=== PATIENT | female | born 1955 | race African-American/Black ===

== ENCOUNTER 2020-04-29 00:39 | Inpatient (IN) ==
[2020-04-29] MEDS ORDERED: DEXAMETHASONE 4 MG/1 ML VIAL IV STA (00:54)
[2020-04-29] MEDS ORDERED: ONDANSETRON 4 MG/2 ML VIAL IV STA (00:54)
[2020-04-29] MEDS ORDERED: PIPERACILLIN/TAZOBACTAM 3,375 MG in SODIUM CHLORIDE 0.9% 100 ML IV STA (01:35)
[2020-04-29 02:09] LABS: Basophils % 0.2 % (0.0-0.8); Hematocrit 34.6 VOL% (35.7-47.0); Hemoglobin 11.1 GM/DL (12.0-16.0); Lymphocytes # 2.4 10*3/uL (1.4-4.0); Lymphocytes % 24.7 % (21.3-54.2); Mean Corpuscular HGB Conc 32.1 GM/DL (32-36); Mean Corpuscular Volume 85.4 FL (87-102); Mean Platelet Volume 8.9 FL (9.6-12.0); Monocytes % 7.6 % (1.7-12.7); Neutrophils % 66.5 % (38.7-73.9); Platelet Count 332 T/CUMM (130-400); Red Blood Count 4.05 MC/CUMM (3.8-5.5); Red Cell Distribution Width 18.2 % (9.3-17.3); White Blood Count 9.8 T/CUMM (4-12)
[2020-04-29] MEDS ORDERED: AZITHROMYCIN INJ 500 MG in SODIUM CHLORIDE 0.9% 250 ML IV ONE (02:10)
[2020-04-29] MEDS ORDERED: GLUCAGON 1 MG VIAL IM PRN (02:19)
[2020-04-29] MEDS ORDERED: DOCUSATE SODIUM 100 MG CAPSULE PO PRN (02:19)
[2020-04-29] MEDS ORDERED: DEXTROSE 50% 25 GM/50 ML VIAL IV PRN (02:19)
[2020-04-29 02:39] LABS: Albumin 2.9 G/DL (3.4-5.0); Bilirubin,Total 0.4 MG/DL (0.2-1.0); Calcium 8.3 MG/DL (8.5-10.1); Ferritin 178.2 ng/ml (8-252); Osmolality,Calculated 275.5 MOS/KG (273-304); Potassium 3.2 MMOL/L (3.5-5.1); Total Protein 8.2 G/DL (6.4-8.3)
[2020-04-29] MEDS: ACETAMINOPHEN 325 MG TABLET PO PRN (05:10)
[2020-04-29 06:24] LABS: PT Patient Result 10.9 SECS (9.8-11.9)
[2020-04-29] MEDS ORDERED: REMDESIVIR 200 MG in SODIUM CHLORIDE 0.9% 210 ML IV ONE (09:00)
[2020-04-29] MEDS: CHOLECALCIFEROL 1,000 UNIT TABLET PO SCH (09:55)
[2020-04-29] MEDS: FAMOTIDINE 20 MG TABLET PO SCH ×2 (09:55→20:58)
[2020-04-29] MEDS: DEXAMETHASONE 4 MG/1 ML VIAL IV SCH (09:55)
[2020-04-29] MEDS: ASCORBIC ACID 500 MG TABLET PO SCH ×2 (09:55→20:57)
[2020-04-29] MEDS: ENOXAPARIN 40 MG/0.4 ML SYRINGE SUBCUT SCH ×2 (11:10→20:57)
[2020-04-29] MEDS: CETIRIZINE 10 MG TABLET PO SCH (11:21)
[2020-04-29] MEDS: ZINC GLUCONATE 50 MG TABLET PO SCH (11:21)
[2020-04-29] MEDS: DOXYCYCLINE HYCLATE INJ 100 MG in SODIUM CHLORIDE 0.9% 100 ML IV SCH ×2 (13:01→20:58)
[2020-04-30 04:06] LABS: ABG HCO3 27.7 MMOL/L (20-26); ABG PCO2 39.9 MM HG (35-48); ABG PH 7.457 (7.35-7.45); ABG PO2 46.9 MM HG (80-95); ABG TCO2 25.5 MMOL/L (23-27)
[2020-04-30 05:05] LABS: Basophils % 0.1 % (0.0-0.8); Hematocrit 33.4 VOL% (35.7-47.0); Hemoglobin 11.2 GM/DL (12.0-16.0); Immature Granulocytes % 0.9 %; Immature Granulocytes Absolute 0.13 #; Lymphocytes # 3.6 10*3/uL (1.4-4.0); Lymphocytes % 25.8 % (21.3-54.2); Mean Corpuscular HGB Conc 33.5 GM/DL (32-36); Mean Corpuscular Volume 82.1 FL (87-102); Mean Platelet Volume 9.5 FL (9.6-12.0); Monocytes % 7.5 % (1.7-12.7); Neutrophils % 65.7 % (38.7-73.9); Platelet Count 371 T/CUMM (130-400); Red Blood Count 4.07 MC/CUMM (3.8-5.5); Red Cell Distribution Width 17.2 % (9.3-17.3); White Blood Count 14.1 T/CUMM (4-12)
[2020-04-30 05:25] LABS: Calcium 8.3 MG/DL (8.5-10.1); Osmolality,Calculated 283.1 MOS/KG (273-304); Potassium 3.4 MMOL/L (3.5-5.1)
[2020-04-30 05:27] LABS: Hypochromasia 1+; Lymphocytes 21 % (20-55); Microcytosis 1+; Platelet Estimate Adequate; Segmented Neutrophils 68 % (50-85); Total Cells Counted 100
[2020-04-30] MEDS: DEXAMETHASONE 4 MG/1 ML VIAL IV SCH (09:50)
[2020-04-30] MEDS: ALBUTEROL INHALER 18 GM INH SCH ×3 (09:50→18:22)
[2020-04-30] MEDS: FAMOTIDINE 20 MG TABLET PO SCH ×2 (09:51→20:54)
[2020-04-30] MEDS: CHOLECALCIFEROL 1,000 UNIT TABLET PO SCH (09:51)
[2020-04-30] MEDS: ASCORBIC ACID 500 MG TABLET PO SCH ×2 (09:51→20:55)
[2020-04-30] MEDS: CETIRIZINE 10 MG TABLET PO SCH (09:51)
[2020-04-30] MEDS: ENOXAPARIN 120 MG/0.8 ML SYRINGE SUBCUT SCH ×2 (09:51→20:55)
[2020-04-30] MEDS: ENOXAPARIN 40 MG/0.4 ML SYRINGE SUBCUT SCH (10:24)
[2020-04-30 10:40] LABS: Troponin I < 0.015 NG/ML (0.00-0.045)
[2020-04-30] MEDS ORDERED: ALUMINUM/MAGNES/SIMETH MAX STR 30 ML UDCUP PO PRN (10:43)
[2020-04-30] MEDS: REMDESIVIR 100 MG in SODIUM CHLORIDE 0.9% 100 ML IV SCH (10:45)
[2020-04-30] MEDS: DOXYCYCLINE HYCLATE INJ 100 MG in SODIUM CHLORIDE 0.9% 100 ML IV SCH ×2 (12:34→22:03)
[2020-04-30] MEDS: OLMESARTAN 20 MG TABLET PO SCH (14:27)
[2020-04-30] MEDS ORDERED: SODIUM CHLORIDE 0.9% 1,000 ML IV PRN (14:37)
[2020-04-30] MEDS ORDERED: FUROSEMIDE 40 MG/4 ML VIAL IV ONE (15:46)
[2020-04-30 16:41] LABS: ABG Base Excess 4.4 MMOL/L (-2.5-2.5); ABG HCO3 28.2 MMOL/L (20-26); ABG PH 7.439 (7.35-7.45); ABG TCO2 25.6 MMOL/L (23-27); Allen Test Positive; Pt O2 Delivery Device BIPAP
[2020-05-01] MEDS: ALBUTEROL INHALER 18 GM INH SCH ×4 (01:30→20:45)
[2020-05-01] MEDS: ONDANSETRON 4 MG/2 ML VIAL IV PRN ×2 (03:05→08:32)
[2020-05-01 04:46] LABS: Basophils % 0.1 % (0.0-0.8); Eosinophils % 0.1 % (0.00-10.9); Hematocrit 35.8 VOL% (35.7-47.0); Hemoglobin 11.6 GM/DL (12.0-16.0); Immature Granulocytes % 0.6 %; Immature Granulocytes Absolute 0.07 #; Lymphocytes # 3.2 10*3/uL (1.4-4.0); Lymphocytes % 26.2 % (21.3-54.2); Mean Corpuscular HGB Conc 32.4 GM/DL (32-36); Mean Corpuscular Volume 82.3 FL (87-102); Mean Platelet Volume 9.4 FL (9.6-12.0); Monocytes % 7.4 % (1.7-12.7); Neutrophils % 65.6 % (38.7-73.9); Platelet Count 413 T/CUMM (130-400); Red Blood Count 4.35 MC/CUMM (3.8-5.5); Red Cell Distribution Width 17.2 % (9.3-17.3)
[2020-05-01 05:04] LABS: Calcium 8.4 MG/DL (8.5-10.1); Osmolality,Calculated 287.8 MOS/KG (273-304); Potassium 3.1 MMOL/L (3.5-5.1)
[2020-05-01 05:17] LABS: Atypical Lymphocytes Few; Hypochromasia 1+; Lymphocytes 24 % (20-55); Microcytosis 1+; Platelet Estimate Adequate; Segmented Neutrophils 69 % (50-85); Total Cells Counted 100
[2020-05-01] MEDS ORDERED: POTASSIUM CHLORIDE 20 MEQ TABLET PO ONE (08:11)
[2020-05-01] MEDS: DEXAMETHASONE 4 MG/1 ML VIAL IV SCH (08:30)
[2020-05-01] MEDS: CETIRIZINE 10 MG TABLET PO SCH (08:32)
[2020-05-01] MEDS: CHOLECALCIFEROL 1,000 UNIT TABLET PO SCH (08:32)
[2020-05-01] MEDS: ENOXAPARIN 120 MG/0.8 ML SYRINGE SUBCUT SCH ×2 (08:32→20:45)
[2020-05-01] MEDS: ZINC GLUCONATE 50 MG TABLET PO SCH (08:33)
[2020-05-01] MEDS: OLMESARTAN 20 MG TABLET PO SCH (08:33)
[2020-05-01] MEDS: DOXYCYCLINE HYCLATE INJ 100 MG in SODIUM CHLORIDE 0.9% 100 ML IV SCH ×2 (08:34→21:45)
[2020-05-01] MEDS: ASCORBIC ACID 500 MG TABLET PO SCH ×2 (08:34→20:45)
[2020-05-01] MEDS: POTASSIUM CHLORIDE RIDER 10 MEQ in PREMIX 1 EACH IV PRN ×3 (08:34→12:11)
[2020-05-01] MEDS: FAMOTIDINE 20 MG TABLET PO SCH ×2 (08:34→20:45)
[2020-05-01] MEDS: REMDESIVIR 100 MG in SODIUM CHLORIDE 0.9% 100 ML IV SCH (09:49)
[2020-05-01] MEDS: ALPRAZolam 0.25 MG TABLET PO PRN ×2 (12:11→20:47)
[2020-05-01 14:17] LABS: Bacteria,Urine Occasional /HPF (Few); Bilirubin,Urine Negative (Negative); Blood, Urine Negative (Negative); Glucose,Urine (UA) Negative (Negative); Ketones,Urine 5 mg/dL (Negative); Mucus,Urine Occasional /LPF (Occasional); Nitrite,Urine Negative (Negative); Protein,Urine 100 MG/DL; RBC,Urine 1 /HPF (0-4); Squamous Epithelial Cell,Urine Occasional /HPF (0-10); Urine Appearance CLEAR (Clear); Urine Color Yellow (Yellow); Urine Specific Gravity 1.017 (1.001-1.035); Urine Urobilinogen < 2.0 EU/DL (0.2-1.0); WBC,Urine 8 /HPF (0-6)
[2020-05-01] MEDS: MELATONIN 3 MG TABLET PO PRN (20:46)
[2020-05-02] MEDS: ACETAMINOPHEN 325 MG TABLET PO PRN ×2 (00:29→08:31)
[2020-05-02] MEDS: ALBUTEROL INHALER 18 GM INH SCH ×4 (01:50→20:21)
[2020-05-02 04:17] LABS: Basophils % 0.1 % (0.0-0.8); Eosinophils % 0.1 % (0.00-10.9); Hematocrit 33.5 VOL% (35.7-47.0); Hemoglobin 10.8 GM/DL (12.0-16.0); Immature Granulocytes % 0.6 %; Immature Granulocytes Absolute 0.09 #; Lymphocytes # 3.8 10*3/uL (1.4-4.0); Mean Corpuscular HGB Conc 32.2 GM/DL (32-36); Mean Corpuscular Volume 83.3 FL (87-102); Mean Platelet Volume 9.3 FL (9.6-12.0); Monocytes % 7.9 % (1.7-12.7); Neutrophils % 65.3 % (38.7-73.9); Platelet Count 421 T/CUMM (130-400); Red Blood Count 4.02 MC/CUMM (3.8-5.5); Red Cell Distribution Width 17.3 % (9.3-17.3); White Blood Count 14.7 T/CUMM (4-12)
[2020-05-02 04:41] LABS: Calcium 8.7 MG/DL (8.5-10.1); Potassium 3.8 MMOL/L (3.5-5.1)
[2020-05-02 04:44] LABS: Lymphocytes 29 % (20-55); Platelet Estimate Increased; Segmented Neutrophils 66 % (50-85); Total Cells Counted 100
[2020-05-02 04:45] LABS: Hypochromasia Slight
[2020-05-02 04:50] LABS: Allen Test Positive; Pt O2 Delivery Device BIPAP
[2020-05-02 04:53] LABS: ABG Base Excess 5.4 MMOL/L (-2.5-2.5); ABG HCO3 29.8 MMOL/L (20-26); ABG Oxygen Saturation 90.5 % (95-100); ABG PH 7.459 (7.35-7.45); ABG PO2 57.9 MM HG (80-95); ABG TCO2 31.1 MMOL/L (23-27)
[2020-05-02] MEDS: ONDANSETRON 4 MG/2 ML VIAL IV PRN (08:29)
[2020-05-02] MEDS: DEXAMETHASONE 4 MG/1 ML VIAL IV SCH (08:30)
[2020-05-02] MEDS: ALPRAZolam 0.25 MG TABLET PO PRN ×2 (08:30→20:22)
[2020-05-02] MEDS: ASCORBIC ACID 500 MG TABLET PO SCH ×2 (08:31→20:21)
[2020-05-02] MEDS: CETIRIZINE 10 MG TABLET PO SCH (08:31)
[2020-05-02] MEDS: OLMESARTAN 20 MG TABLET PO SCH (08:31)
[2020-05-02] MEDS: FAMOTIDINE 20 MG TABLET PO SCH ×2 (08:31→20:21)
[2020-05-02] MEDS: CHOLECALCIFEROL 1,000 UNIT TABLET PO SCH (08:31)
[2020-05-02] MEDS: ENOXAPARIN 120 MG/0.8 ML SYRINGE SUBCUT SCH ×2 (08:32→21:10)
[2020-05-02] MEDS: DOXYCYCLINE HYCLATE INJ 100 MG in SODIUM CHLORIDE 0.9% 100 ML IV SCH ×2 (09:03→20:26)
[2020-05-02] MEDS: REMDESIVIR 100 MG in SODIUM CHLORIDE 0.9% 100 ML IV SCH (12:10)
[2020-05-02] MEDS: MELATONIN 3 MG TABLET PO PRN (20:21)
[2020-05-03] MEDS: ALBUTEROL INHALER 18 GM INH SCH ×4 (03:21→21:38)
[2020-05-03 04:39] LABS: Basophils % 0.2 % (0.0-0.8); Eosinophils % 0.1 % (0.00-10.9); Hematocrit 33.1 VOL% (35.7-47.0); Hemoglobin 10.7 GM/DL (12.0-16.0); Immature Granulocytes % 0.9 %; Immature Granulocytes Absolute 0.12 #; Lymphocytes # 3.2 10*3/uL (1.4-4.0); Lymphocytes % 22.4 % (21.3-54.2); Mean Corpuscular HGB Conc 32.3 GM/DL (32-36); Mean Corpuscular Volume 85.1 FL (87-102); Mean Platelet Volume 9.4 FL (9.6-12.0); Monocytes % 5.2 % (1.7-12.7); Neutrophils % 71.2 % (38.7-73.9); Platelet Count 389 T/CUMM (130-400); Red Blood Count 3.89 MC/CUMM (3.8-5.5); Red Cell Distribution Width 17.6 % (9.3-17.3); White Blood Count 14.1 T/CUMM (4-12)
[2020-05-03 04:57] LABS: Calcium 8.4 MG/DL (8.5-10.1); Osmolality,Calculated 283.1 MOS/KG (273-304); Potassium 3.7 MMOL/L (3.5-5.1)
[2020-05-03 05:19] LABS: Eosinophils 1 % (0-10); Hypochromasia 1+; Lymphocytes 24 % (20-55); Microcytosis 1+; Platelet Estimate Adequate; Segmented Neutrophils 66 % (50-85); Total Cells Counted 100
[2020-05-03] MEDS: DOXYCYCLINE HYCLATE INJ 100 MG in SODIUM CHLORIDE 0.9% 100 ML IV SCH ×2 (08:30→21:44)
[2020-05-03] MEDS: CETIRIZINE 10 MG TABLET PO SCH (08:31)
[2020-05-03] MEDS: CHOLECALCIFEROL 1,000 UNIT TABLET PO SCH (08:31)
[2020-05-03] MEDS: ZINC GLUCONATE 50 MG TABLET PO SCH (08:31)
[2020-05-03] MEDS: OLMESARTAN 20 MG TABLET PO SCH (08:31)
[2020-05-03] MEDS: ASCORBIC ACID 500 MG TABLET PO SCH ×2 (08:31→21:44)
[2020-05-03] MEDS: ENOXAPARIN 120 MG/0.8 ML SYRINGE SUBCUT SCH ×2 (08:32→21:44)
[2020-05-03] MEDS: DEXAMETHASONE 4 MG/1 ML VIAL IV SCH (08:37)
[2020-05-03] MEDS: FAMOTIDINE 20 MG TABLET PO SCH ×2 (08:37→21:44)
[2020-05-03] MEDS: ALPRAZolam 0.25 MG TABLET PO PRN (12:11)
[2020-05-03] MEDS: REMDESIVIR 100 MG in SODIUM CHLORIDE 0.9% 100 ML IV SCH (12:15)
[2020-05-03] MEDS: MELATONIN 3 MG TABLET PO PRN (21:44)
[2020-05-03] MEDS: ACETAMINOPHEN 325 MG TABLET PO PRN (22:19)
[2020-05-04] MEDS: ALBUTEROL INHALER 18 GM INH SCH ×4 (01:11→18:00)
[2020-05-04] MEDS: ALPRAZolam 0.25 MG TABLET PO PRN ×3 (01:42→20:10)
[2020-05-04 05:16] LABS: Basophils % 0.2 % (0.0-0.8); Eosinophils # 0.1 10*3/uL (0.0-0.87); Eosinophils % 0.5 % (0.00-10.9); Hematocrit 34.3 VOL% (35.7-47.0); Immature Granulocytes % 0.9 %; Immature Granulocytes Absolute 0.12 #; Lymphocytes # 2.7 10*3/uL (1.4-4.0); Lymphocytes % 21.2 % (21.3-54.2); Mean Corpuscular HGB Conc 32.1 GM/DL (32-36); Mean Corpuscular Volume 83.7 FL (87-102); Mean Platelet Volume 10.1 FL (9.6-12.0); Monocytes % 7.7 % (1.7-12.7); Neutrophils % 69.5 % (38.7-73.9); Platelet Count 426 T/CUMM (130-400); Red Cell Distribution Width 17.2 % (9.3-17.3); White Blood Count 12.9 T/CUMM (4-12)
[2020-05-04 05:56] LABS: Calcium 8.8 MG/DL (8.5-10.1)
[2020-05-04 05:57] LABS: Osmolality,Calculated 280.3 MOS/KG (273-304); Potassium 3.5 MMOL/L (3.5-5.1)
[2020-05-04] MEDS: CHOLECALCIFEROL 1,000 UNIT TABLET PO SCH (09:45)
[2020-05-04] MEDS: FAMOTIDINE 20 MG TABLET PO SCH ×2 (09:45→20:10)
[2020-05-04] MEDS: OLMESARTAN 20 MG TABLET PO SCH (09:45)
[2020-05-04] MEDS: ASCORBIC ACID 500 MG TABLET PO SCH ×2 (12:13→20:10)
[2020-05-04] MEDS: CETIRIZINE 10 MG TABLET PO SCH (12:13)
[2020-05-04] MEDS: DOXYCYCLINE HYCLATE INJ 100 MG in SODIUM CHLORIDE 0.9% 100 ML IV SCH ×2 (12:13→20:10)
[2020-05-04] MEDS: ENOXAPARIN 120 MG/0.8 ML SYRINGE SUBCUT SCH ×2 (12:13→21:15)
[2020-05-04] MEDS: DEXAMETHASONE 10 MG/1 ML VIAL IV SCH (12:14)
[2020-05-04] MEDS: ACETAMINOPHEN 325 MG TABLET PO PRN (18:00)
[2020-05-04] MEDS: MELATONIN 3 MG TABLET PO PRN (21:15)
[2020-05-05] MEDS: ALBUTEROL INHALER 18 GM INH SCH ×3 (01:15→12:36)
[2020-05-05] MEDS: ALPRAZolam 0.25 MG TABLET PO PRN (04:35)
[2020-05-05 05:21] LABS: Basophils % 0.1 % (0.0-0.8); Eosinophils % 0.3 % (0.00-10.9); Hematocrit 32.4 VOL% (35.7-47.0); Hemoglobin 10.6 GM/DL (12.0-16.0); Immature Granulocytes % 1.5 %; Immature Granulocytes Absolute 0.22 #; Lymphocytes # 2.7 10*3/uL (1.4-4.0); Lymphocytes % 18.3 % (21.3-54.2); Mean Corpuscular HGB Conc 32.7 GM/DL (32-36); Mean Corpuscular Volume 81.2 FL (87-102); Mean Platelet Volume 9.1 FL (9.6-12.0); Monocytes % 5.9 % (1.7-12.7); Neutrophils % 73.9 % (38.7-73.9); Platelet Count 430 T/CUMM (130-400); Red Blood Count 3.99 MC/CUMM (3.8-5.5); Red Cell Distribution Width 17.1 % (9.3-17.3); White Blood Count 14.8 T/CUMM (4-12)
[2020-05-05 05:39] LABS: Calcium 8.5 MG/DL (8.5-10.1); Osmolality,Calculated 278.4 MOS/KG (273-304); Potassium 3.3 MMOL/L (3.5-5.1)
[2020-05-05] MEDS: DEXAMETHASONE 10 MG/1 ML VIAL IV SCH (10:25)
[2020-05-05] MEDS: FAMOTIDINE 20 MG TABLET PO SCH (10:25)
[2020-05-05] MEDS: CHOLECALCIFEROL 1,000 UNIT TABLET PO SCH (10:25)
[2020-05-05] MEDS: CETIRIZINE 10 MG TABLET PO SCH (10:25)
[2020-05-05] MEDS: ASCORBIC ACID 500 MG TABLET PO SCH (10:25)
[2020-05-05] MEDS: OLMESARTAN 20 MG TABLET PO SCH (10:25)
[2020-05-05] MEDS: ENOXAPARIN 120 MG/0.8 ML SYRINGE SUBCUT SCH (11:04)
[2020-05-05] MEDS: DOXYCYCLINE HYCLATE INJ 100 MG in SODIUM CHLORIDE 0.9% 100 ML IV SCH (11:04)
[2020-05-05] MEDS ORDERED: LORazepam 2 MG/1 ML VIAL IV PRN (14:48)
[2020-05-05 16:33] VITALS: BP 157/97
[2020-05-05] MEDS ORDERED: EPINEPHrine 1 MG/10 ML SYRINGE IV ONE (17:07)
[2020-05-05] MEDS ORDERED: SODIUM BICARBONATE 50 MEQ/50 ML SYRINGE IV ONE (17:07)
== END 2020-05-05 17:08 | disposition expired | DRG 177 ==
LOC: N.ED 00:39 → SUATTDRO 02:07 → N.EDINP 02:07 → N.2E 03:19 → N.ICU 04-30 10:10 → N.2E 05-03 12:11
PROVIDERS: ADMIT Internal Medicine; ATTEND Internal Medicine